=== PATIENT | male | born 1995 | race Asian ===

== ENCOUNTER 2021-04-04 12:36 | Emergency (ER) | payer BC ==
[~2021-04-04] VITALS: Ht 175.3 cm; Wt 109.2 kg
[2021-04-04 12:47] VITALS: BP 158/96
--- NOTE | 2021-04-04 13:05 | PHYS DOC ---
General Adult EDM: Chief Complaint: LOWEREXTREMITY INJURY HPI: HPI: Patient is a 25 year old male who presents with patient he was shoveling snow when he slipped and fell landing on his left knee. He states that he heard a pop. He states he has been up and walking without complication. He states that it does not hurt when he is up and walking on it. He denies any numbness or tingling or weakness in the joint. Rates his pain when he is up and walking 7 out of 10. Review of Systems: Review of Systems: Constitutional: Denies fever or chills. [] Eyes: Denies change in visual acuity. [] HENT: Denies nasal congestion or sore throat. [] Respiratory: Denies cough or shortness of breath. [] Cardiovascular: Denies chest pain or edema. [] GI: Denies abdominal pain, nausea, vomiting, bloody stools or diarrhea. [] : Denies dysuria. [] Musculoskeletal: Denies back pain or + left knee joint pain. [] Integument: Denies rash. [] Neurologic: Denies headache, focal weakness or sensory changes. [] Endocrine: Denies polyuria or polydipsia. [] Lymphatic: Denies swollen glands. [] Psychiatric: Denies depression or anxiety. [] Heart Score: C/O Chest Pain: No Physical Exam: PE: Constitutional: Well developed, well nourished, no acute distress, non-toxic appearance. [] HENT: Normocephalic, atraumatic, bilateral external ears normal, oropharynx moist, no oral exudates, nose normal. [] Eyes: PERRLA, EOMI, conjunctiva normal, no discharge. [] Neck: Normal range of motion, no tenderness, supple, no stridor. [] Cardiovascular:Heart rate regular rhythm, no murmur [] Lungs & Thorax: Bilateral breath sounds clear to auscultation [] Abdomen: Bowel sounds normal, soft, no tenderness, no masses, no pulsatile masses. [] Skin: Warm, dry, no erythema, no rash. [] Back: No tenderness, no CVA tenderness. [] Extremities: No tenderness, no cyanosis, no clubbing, ROM intact, no edema. [] Neurologic: Alert and oriented X 3, normal motor function, normal sensory function, no focal deficits noted. [] Psychologic: Affect normal, judgement normal, mood normal. [] EKG: EKG: [] Radiology/Procedures: Radiology/Procedures: [] Impression: [facility] [address] [place] [address] IMAGING REPORT Signed PATIENT: BLAS DILLON ACCOUNT: [id number] : 1995 LOCATION: ER AGE: 25 SEX: M EXAM STATUS: REG ER ORD. PHYSICIAN: ANN LIZAMA APRN REASON: fall, knee pain PROCEDURE: KNEE LEFT 4V EXAM: Left knee, 4 views. HISTORY: Fall. Pain. COMPARISON: None. FINDINGS: 4 views of the left knee are obtained. There is no fracture, dislocation or subluxation. There is no suspicious osseous lesion. IMPRESSION: No acute osseous finding. Electronically signed by: Navya Freeman MD (04/04/2021 1:48 PM) [id number] DICTATED and SIGNED BY: NAVYA FREEMAN MD DATE: 04/04/21 [id number] Course & Med Decision Making: Course & Med Decision Making Pertinent Labs and Imaging studies reviewed. (See chart for details) See HPI. Alert and oriented x4. Ambulatory with steady gait. Speaks in full clear sentences. No joint laxity. No deformity seen. There is no redness. No swelling. Pedal pulse strong and palpable. No tenderness with palpation. Patient does state that he feels as though he has to help lift his knee. Sensations intact. Patient is given prescription for crutches. He is placed in a knee immobilizer. [] Dragon Disclaimer: Dragon Disclaimer: This electronic medical record was generated, in whole or in part, using a voice recognition dictation system. Departure Departure Impression: Primary Impression: Knee pain, left Qualified Codes: M25.562 - Pain in left knee Disposition: HOME / SELF CARE / HOMELESS Condition: STABLE Referrals: NO PCP (PCP) BRENNAN IVEY MD Patient Instructions: Crutch Use, [id number], Knee Immobilizer, [id number], Knee Pain Additional Instructions: Follow-up with your primary care provider or with the orthopedic I have referred you to. Use ice and elevation. Take ibuprofen or Tylenol for your pain. Try to rest the extremity for the next couple of weeks or until you have seen a follow-up physician.. Scripts [crutches] No Conflict Check PAIR PRN PRN for PAIN, #1 Prov: ANN LIZAMA APRN 04/04/21 ANN LIZAMA APRN Apr 04, 2021 13:05
--- NOTE | 2021-04-04 13:50 | RAD ---
EXAM: Left knee, 4 views. HISTORY: Fall. Pain. COMPARISON: None. FINDINGS: 4 views of the left knee are obtained. There is no fracture, dislocation or subluxation. Th ere is no suspicious osseous lesion. IMPRESSION: No acute osseous finding. Electronically signed by: Navya Suarez MD (04/04/2021 1:48 PM) [id number]
[2021-04-04] MEDS ORDERED: crutches (14:12)
== END 2021-04-04 15:05 | disposition home or self-care (01) ==
LOC: ER 12:36
DX: M25.562 Pain in left knee (principal); G89.11 Acute pain due to trauma; W00.2XXA Other fall from one level to another due to ice and snow, initial encounter; Y93.H1 Activity, digging, shoveling and raking; Y92.89 Other specified places as the place of occurrence of the external cause; Y99.8 Other external cause status
CPT/HCPCS: 29505; 73564; 99283